=== PATIENT | female | born 1990 | race Two or more races ===

== ENCOUNTER 2024-02-15 08:16 | Outpatient (CLI) | payer OTHER | END 2024-02-15 08:17 | disposition home or self-care (01) | LOC: PRENATAL 08:16 | PROVIDERS: ATTEND Obstetrics & Gynecology Maternal & Fetal Medicine | DX: O36.80X0 Pregnancy with inconclusive fetal viability, not applicable or unspecified (principal); Z36.82 Encounter for antenatal screening for nuchal translucency; O46.91 Antepartum hemorrhage, unspecified, first trimester; Z3A.11 11 weeks gestation of pregnancy ==

== ENCOUNTER 2024-04-10 08:18 | Outpatient (CLI) | payer OTHER | END 2024-04-10 08:19 | disposition home or self-care (01) | LOC: PRENATAL 08:18 | PROVIDERS: ATTEND Obstetrics & Gynecology Maternal & Fetal Medicine | DX: O35.3XX0 Maternal care for (suspected) damage to fetus from viral disease in mother, not applicable or unspecified (principal); O44.00 Complete placenta previa NOS or without hemorrhage, unspecified trimester; Z3A.19 19 weeks gestation of pregnancy ==

== ENCOUNTER 2024-05-23 13:22 | Outpatient (CLI) | payer OTHER | END 2024-05-23 13:23 | disposition home or self-care (01) | LOC: PRENATAL 13:22 | PROVIDERS: ATTEND Obstetrics & Gynecology Maternal & Fetal Medicine | DX: O26.849 Uterine size-date discrepancy, unspecified trimester (principal); O28.3 Abnormal ultrasonic finding on antenatal screening of mother; Z3A.25 25 weeks gestation of pregnancy ==

== ENCOUNTER 2024-06-16 12:36 | Outpatient (CLI) | payer OTHER | END 2024-06-16 12:50 | disposition home or self-care (01) | LOC: SONOGRAMA 12:36 | PROVIDERS: ATTEND General Practice | DX: R10.2 Pelvic and perineal pain (principal) ==

== ENCOUNTER 2024-07-10 13:34 | Outpatient (CLI) | payer OTHER | END 2024-07-10 13:35 | disposition home or self-care (01) | LOC: PRENATAL 13:34 | PROVIDERS: ATTEND Obstetrics & Gynecology Maternal & Fetal Medicine | DX: O26.849 Uterine size-date discrepancy, unspecified trimester (principal); O36.8199 Decreased fetal movements, unspecified trimester, other fetus; O32.9XX0 Maternal care for malpresentation of fetus, unspecified, not applicable or unspecified; Z3A.33 33 weeks gestation of pregnancy ==

== ENCOUNTER 2024-08-03 13:19 | Outpatient (CLI) | payer OTHER ==
[2024-08-03 12:46] VITALS: BP 117/68
== END 2024-08-03 14:00 | disposition home or self-care (01) ==
LOC: OBS/DEL 13:19
PROVIDERS: ATTEND General Practice
DX: O26.893 Other specified pregnancy related conditions, third trimester (principal); O42.913 Preterm premature rupture of membranes, unspecified as to length of time between rupture and onset of labor, third trimester; Z3A.35 35 weeks gestation of pregnancy

== ENCOUNTER 2024-08-12 13:31 | Outpatient (CLI) | payer OTHER | END 2024-08-12 13:32 | disposition home or self-care (01) | LOC: PRENATAL 13:31 | PROVIDERS: ATTEND Obstetrics & Gynecology Maternal & Fetal Medicine | DX: O26.843 Uterine size-date discrepancy, third trimester (principal); O36.8130 Decreased fetal movements, third trimester, not applicable or unspecified; Z3A.37 37 weeks gestation of pregnancy ==

== ENCOUNTER 2024-08-29 13:30 | Inpatient (IN) | payer OTHER ==
[~2024-08-29] VITALS: Ht 154.9 cm; Wt 4.1 kg
[2024-08-29 14:46] LABS: PH,URINE 6.5 (5.0-8.0); URINE APPEARANCE Clear; URINE BILIRRUBIN Negative (NEGATIVE); URINE BLOOD NHT; URINE COLOR Yellow; URINE GLUCOSE Negative (NEGATIVE); URINE KETONE 15 (NEGATIVE); URINE LEUKOCYTE Negative; URINE NITRATE Negative; URINE PROTEIN Trace (NEGATIVE)
[2024-08-29 14:47] LABS: URINE BACTERIA 205.5 uL (0.0-1933); URINE EPITHELIAL CELLS 13.5 uL (0.0-38.8); URINE RBC 19.2 uL (0.0-20.8); URINE WBC 6.7 uL (0.0-23.2)
[2024-08-29 14:56] LABS: HEMATOCRIT 41.7 % (36.0-45.00); HEMOGLOBIN 14.3 g/dL (12.0-15.00); MEAN CELL VOLUME 95.9 fL (80.00-100.00); MEAN CORPUSCULAR HEMOGLOBIN 32.9 pg (27.00-32.0); MEAN CORPUSCULAR HGB CONC 34.3 g/dl (32.0-36.0); PLATELET COUNT 161 K/uL (150-450); RED BLOOD COUNT 4.35 M/uL (4.00-6.00); RED CELL DISTRIBUTION WIDTH 14.4 % (11.5-14.5)
[2024-08-29 15:11] LABS: INR 0.94; PARTIAL THROMBOPLASTIN TIME 25.2 SECONDS (22.0-34.0); PROTHROMBIN TIME 10.3 SECONDS (9.0-11.5)
[2024-08-29 15:38] LABS: CALCIUM 8.6 mg/dL (8.5-10.1); CREATININE SERUM 0.53 mg/dL (0.55-1.02); GFR 133.68; POTASSIUM 3.71 mEq/L (3.5-5.1)
[2024-09-02 18:05] VITALS: BP 118/72
[2024-09-02] MEDS ORDERED: PRENATAL TABLE1 EAC1 PO (18:45)
[2024-09-02] MEDS ORDERED: RINGERS SOLUTION,LACTATED 1,000 ML IV SCH (19:15)
[2024-09-02] MEDS ORDERED: MISOPROSTOL 25 MCG TABLET ONE (20:13)
[2024-09-02] MEDS ORDERED: MISOPROSTOL 25 MCG TABLET VAG ONE (20:30)
[2024-09-02 23:20] VITALS: BP 126/66
[2024-09-03 03:49] VITALS: BP 144/63
[2024-09-03 07:28] VITALS: BP 112/66
[2024-09-03] MEDS ORDERED: OXYTOCIN 1,000 ML IV SCH ×2 (08:15→17:00)
[2024-09-03] MEDS ORDERED: OXYTOCIN 20 UNITS/500ML RL PIGGYBAG IV ONE (10:02)
[2024-09-03 11:45] VITALS: BP 134/86
[2024-09-03 15:32] VITALS: BP 106/67
[2024-09-03] MEDS ORDERED: RINGERS SOLUTION,LACTATED 1,000 ML IV SCH (17:00)
[2024-09-03] MEDS ORDERED: CHLORHEXIDINE GLUCONATE 120 ML BOTTLE TOP SCH (17:00)
[2024-09-03] MEDS ORDERED: CEFAZOLIN SODIUM 1,000 MG VIAL ONE (17:13)
[2024-09-03] MEDS ORDERED: OXYTOCIN 10 UNITS/ML VIAL ONE ×2 (17:15→20:26)
[2024-09-03] MEDS ORDERED: OxyCODONE HCL/APAP UD (PERCOCET) PO PRN (17:15)
[2024-09-03] MEDS ORDERED: ERYTHROMYCIN BASE OPHT 1GM EACH TUBE OP ONE (17:15)
[2024-09-03] MEDS ORDERED: CEFAZOLIN SODIUM 1,000 MG VIAL IV ONE (17:15)
[2024-09-03] MEDS ORDERED: MORPHINE SULFATE 4 MG/ML VIAL IV ONE ×2 (20:05→20:35)
[2024-09-03 21:42] VITALS: BP 100/68
[2024-09-04] VITALS: BP 119/75
[2024-09-04] MEDS ORDERED: IBUprofen 800 MG TABLET PO SCH (01:00)
[2024-09-04 04:00] VITALS: BP 107/68
[2024-09-04 06:26] LABS: HEMATOCRIT 36.9 % (36.0-45.00); MEAN CELL VOLUME 95.3 fL (80.00-100.00); MEAN CORPUSCULAR HEMOGLOBIN 33.6 pg (27.00-32.0); MEAN CORPUSCULAR HGB CONC 35.2 g/dl (32.0-36.0); PLATELET COUNT 143 K/uL (150-450); RED BLOOD COUNT 3.87 M/uL (4.00-6.00)
[2024-09-04 08:43] VITALS: BP 120/74
[2024-09-04] MEDS ORDERED: OxyCODONE HCL/APAP UD (PERCOCET) PO PRN (09:00)
[2024-09-04] MEDS ORDERED: DOCUSATE SODIUM 100MG CAP PO SCH (09:00)
[2024-09-04 16:40] VITALS: BP 110/74
[2024-09-05 01:33] VITALS: BP 106/70
[2024-09-05 06:45] LABS: HEMATOCRIT 35.3 % (36.0-45.00); HEMOGLOBIN 12.2 g/dL (12.0-15.00); MEAN CELL VOLUME 95.5 fL (80.00-100.00); MEAN CORPUSCULAR HEMOGLOBIN 32.9 pg (27.00-32.0); MEAN CORPUSCULAR HGB CONC 34.5 g/dl (32.0-36.0); PLATELET COUNT 165 K/uL (150-450); RED BLOOD COUNT 3.69 M/uL (4.00-6.00)
[2024-09-05 07:34] VITALS: BP 108/73
[2024-09-05 16:23] VITALS: BP 129/85
[2024-09-06 00:06] VITALS: BP 120/82
[2024-09-06 09:01] VITALS: BP 116/70
[2024-09-06] MEDS ORDERED: COLACE100 MG PO (14:25)
[2024-09-06] MEDS ORDERED: IBUPROFEN800 MG PO (14:25)
[2024-09-06] MEDS ORDERED: OXYC1TAB9 PO (14:25)
== END 2024-09-06 14:42 | disposition home or self-care (01) | DRG 788 ==
LOC: LDR 09-02 13:30 → O/R 09-03 18:01 → OB/GYN 09-03 19:32
PROVIDERS: Student in an Organized Health Care Education/Training Program; ADMIT General Practice; ATTEND General Practice
PROC: 3E0P7VZ Introduction of Hormone into Female Reproductive, Via Natural or Artificial Opening (ICD-10-PCS; 2024-09-02)
PROC: 4A1HXCZ Monitoring of Products of Conception, Cardiac Rate, External Approach (ICD-10-PCS; 2024-09-02)
PROC: 3E033VJ Introduction of Other Hormone into Peripheral Vein, Percutaneous Approach (ICD-10-PCS; 2024-09-03)
PROC: 10D00Z1 Extraction of Products of Conception, Low, Open Approach (ICD-10-PCS; principal; 2024-09-03 18:00)
DX: O61.0 Failed medical induction of labor (principal); Z3A.39 39 weeks gestation of pregnancy; Z37.0 Single live birth